=== PATIENT | female | born 1980 | race Two or more races ===

== ENCOUNTER 2020-05-25 14:34 | Emergency (ER) | payer OTHER, BC, SELFPAY ==
--- NOTE | ~2020-05-25 | CT_ITS ---
EXAMINATION: CT cervical spine wo con DATE: 05/25/2020 15:51 INDICATION: Neck pain after injury TECHNIQUE: Computed tomography (CT) of the cervical spine was performed without intravenous contrast. The dose-length product was 153 mGy-cm. Automated exposure control and iterative reconstruction tech [employer] were employed. COMPARISON: None FINDINGS: Reversal of cervical lordosis, likely due to muscle spasm or patient positioning. No acute fracture or traumatic malalignment. Vertebral body heights are maintained. Craniovertebral junction w ithin normal limits. Lung apices are normal. Odontoid process within normal limits. IMPRESSION: 1. No acute abnormality of the cervical spine. Reviewed, dictated and finalized at location A. T METAL HELPER
--- NOTE | ~2020-05-25 | CT_ITS ---
EXAMINATION: CT BRAIN W/O DATE: 05/25/2020 15:51 INDICATION: Headache after injury TECHNIQUE: Computed tomography (CT) of the head was performed without intravenous contrast. The dose- length product was 605.33 mGy-cm. Automated exposure control and iterative reconstruction technique w ere employed. COMPARISON: No prior studies for comparison. FINDINGS: Normal brain parenchymal volume for age. Normal black-white differentiation. No acute intrac ranial hemorrhage, infarction, mass or mass effect. No ventriculomegaly or midline shift. Midline sagittal images demonstrate a normal corpus callosum, c raniovertebral junction and sella turcica. Basilar cisterns are patent. Paranasal sinuses and mastoids are pneumatized. No depressed skull fractures. IMPRESSION: 1. No acute intracranial abnormality. Reviewed, dictated and finalized at location A. FOLIO MANAGER
[2020-05-25 14:44] VITALS: BP 145/94; PULSE 82; RESP 18; TEMP 36.3; O2SAT 100
--- NOTE | 2020-05-25 15:29 | ED.NEUROSD ---
HPI - Neuro Symptoms/Deficit General Chief Complaint: Neuro Symptoms/Deficit <FILI Gaviria Last Filed: 05/25/20 16:24> Stated Complaint: Head injury/nausea/left side tingling <FILI Gaviria Last Filed: 05/25/20 16:24> Time Seen by Provider: 05/25/20 15:00 <FILI Gaviria Last Filed: 05/25/20 16:24> Source: patient <FILI Gaviria Last Filed: 05/25/20 16:24> Mode of arrival: ambulatory <FILI Gaviria Last Filed: 05/25/20 16:24> Limitations: no limitations <FILI Gaviria Last Filed: 05/25/20 16:24> History of Present Illness HPI Narrative: This is a 39 year old female that presents to the ER for head injury sustained about a week and a half ago. Reports a metal pole fell off of a pallet at work. Reports it hit her in the head. She does not think she lost consciousness. She saw her primary provider yesterday and had an outpatient CT scan ordered, but has been unable to obtain this yet. Reports headaches and nausea. Does report history of migraines. She took an anti-inflammatory and sumatriptan this morning with little relief. Also reports tingling in her left arm. Denies vision changes, weakness, or numbness. <FILI Gaviria Last Filed: 05/25/20 16:24> Related Data Home Medications: Home Medications Medication Instructions Recorded Confirmed amitriptyline 05/25/20 sumatriptan succinate mg PO 05/25/20 <FILI Gaviria Last Filed: 05/25/20 16:24> Allergies/Adverse Reactions: Allergies Allergy/AdvReac Type Severity Reaction Status Date / Time PROCHLORPERAZINE EDISYLATE Allergy Mild BECOMES Uncoded 05/25/20 14:51 AGITATED PROCHLORPERAZINE MALEATE Allergy Mild BECOMES Uncoded 05/25/20 14:51 AGITATED <FILI Gaviria Last Filed: 05/25/20 16:24> Review of Systems Review of Systems: Narrative: CONSTITUTIONAL: Denies fever EYES: Denies visual changes GASTROINTESTINAL: Reports nausea, vomiting NEUROLOGIC: Reports headache. Denies numbness, or weakness. <Jaimie Pierre PA-C - Last Filed: 05/25/20 16:24> All systems reviewed & are unremarkable except as noted in HPI and below <Jaimie Pierre PA-C - Last Filed: 05/25/20 16:24> [facility] Past Medical History Medical History: Medical History (Updated 05/25/20 @ 16:23 by Jaimie Pierre PA-C) History of migraine <Jaimie Pierre PA-C - Last Filed: 05/25/20 16:24> Surgical History Surgical History: Surgical History (Updated 05/25/20 @ 15:45 by Jaimie Pierre PA-C) History of <Jaimie Pierre PA-C - Last Filed: 05/25/20 16:24> Social History Social History: Social History Gender identity (if verbalized by the patient): Female <Jaimie Pierre PA-C - Last Filed: 05/25/20 16:24> Exam Narrative: Exam Narrative: GENERAL: Well-appearing, well-nourished, and in no acute distress. HEAD: Normocephalic, atraumatic. EYES: PERRLA and EOMI. ENT: Nares clear, no rhinorrhea or epistaxis. Mucous membranes moist. Oropharynx without tonsillar hypertrophy exudate or other lesions. Bilateral TMs pearly black non-bulging NECK: Supple. No adenopathy or masses. CHEST: Clear to auscultation. No respiratory distress. No wheezes rales or rhonchi HEART: Regular rate and rhythm. No murmur heard. Normal peripheral pulses. EXTREMITIES: Normal range of motion. No edema. Strength equal in bilateral upper and lower extremities (5/5) SKIN: Warm, dry, no rash. NEURO: No focal deficits. Alert and oriented x3. Cranial nerves II through XII grossly intact. Normal [id number] PSYCH: Normal mood and affect <Jaimie Pierre PA-C - Last Filed: 05/25/20 16:24> Course Vital Signs Vital signs: Vital Signs Temperature 36.3 C L 05/25/20 14:44 Pulse Rate 82 05/25/20 14:44 Respiratory Rate 18 05/25/20 14:44 Blood Pressure 145/94 H 05/25/20 14:44 Pulse Oximetry 100 05/25/20 14:44
[2020-05-25 15:37] VITALS: BP 131/85; O2SAT 100
[2020-05-25 15:38] VITALS: O2SAT 100
[2020-05-25] MEDS: KETOROLAC 30 MG/ML VIAL (*BKC) IV PUSH (15:39)
[2020-05-25] MEDS: SODIUM CHLORIDE 0.9% IV 1,000 ML 999 ML IV CONT (15:40)
[2020-05-25 15:56] VITALS: O2SAT 100
[2020-05-25 16:01] VITALS: O2SAT 100
[2020-05-25 16:15] VITALS: O2SAT 100
== END 2020-05-25 16:37 | disposition home or self-care (01) ==
PROVIDERS: Emergency Provider Emergency Medicine; PCP Family Medicine
DX: S06.0X0A Concussion without loss of consciousness, initial encounter (principal); W20.8XXA Other cause of strike by thrown, projected or falling object, initial encounter
CPT/HCPCS: 70450; 72125; 96361; 96365; 96375; 99284; J0131; J1885; J7030

== ENCOUNTER 2022-11-16 04:15 | Emergency (ER) | payer BC, OTHER, SELFPAY ==
[2022-11-16] VITALS (33 sets, daily range): BP systolic 87–141; BP diastolic 59–91; PULSE 78–101; RESP 11–27; TEMP 36.1; O2SAT 74–100
--- NOTE | ~2022-11-16 | CT_ITS ---
Non-contrast Head CT History: Altered mental status COMPARISON: 05/25/2020 Technique: Axial non-contrast imaging of the brain was performed. Dose reduction technique was used on this scan by utilizing automated exposure control and iterative reconstruction technique. The dose -length product (DLP) was 605.33 mGy-cm. Findings: There is no evidence of intracranial hemorrhage, mass lesion, or acute infarct. Brain par enchyma appears normal. The ventricles and subarachnoid spaces are normal in size. The calvarium ap pears normal. The visualized paranasal sinuses and mastoid air cells are clear. Impression: No significant abnormality seen. Reviewed, dictated and finalized at location . Impression: No significant abnormality seen.
--- NOTE | ~2022-11-16 | XR_ITS ---
Portable chest x-ray Comparison: 11/16/2022 at 4:49 AM Clinical History: Repeat exam with nipple markers Findings: Bilateral nipple markers are present, and correspond to subtle bilateral nodular opacities , which are consistent therefore with nipple shadows. Lungs are otherwise clear. Cardiomediastinal s ilhouette is stable. Bones and soft tissues are unremarkable. Impression: No suspicious abnormality. Bilateral nipple shadows, which correlate with the nipple markers. Reviewed, dictated and finalized at location M. Impression: No suspicious abnormality. Bilateral nipple shadows, which correlate with the n ipple markers.
--- NOTE | ~2022-11-16 | XR_ITS ---
Portable chest x-ray Comparison: 10/09/2013 Clinical History: Altered mental status Findings: There is a 13 mm nodular opacity projecting over the right lung base. Left lung is clear. Cardiomediastinal silhouette is stable. Bones and soft tissues are unremarkable. Impression: 13 mm nodular opacity projecting over the right lung base. Repeat exam with nipple markers and/or CT scan recommended to further evaluate for pulmonary nodule. Reviewed, dictated and finalized at location M. Impression: 13 mm nodular opacity projecting over the right lung base. Repeat exam with nip ple markers and/or CT scan recommended to further evaluate for pulmonary nodule .
--- NOTE | 2022-11-16 04:24 | ECG_ITS ---
Measurements Intervals [place] Rate: 101 P: 50 MD: 176 QRS: 96 QRSD: 105 T: -5 QT: 350 QTc: 455 Interpretive Statements SINUS TACHYCARDIA RIGHT AXIS DEVIATION BORDERLINE ST-T WAVE ABNORMALITY- ANT/INF LEADS BORDERLINE ECG NO PREVIOUS ECG AVAILABLE FOR COMPARISON Electronically Signed On 11-16-2022 9:00:03 CDT by Sacha Hubbard D.O.
[2022-11-16 04:41] LABS: Glucose Point of Care 144 mg/dl (65-105)
[2022-11-16 04:50] LABS: Alveolar/Arterial O2 Gradient 9.2 mmHg; Base Excess ABG -0.3 mEq/l (+/-2.0); Fractional Inspired Oxygen 21 %; HCO3 ABG 24.5 mEq/l (22.0-26.0); Oxygen Content ABG 16.9 %vol (16.0-22.0); Oxyhemoglobin 95.1 % THb (90.0-100.0); PCO2 ABG 40.8 mmHg (35.0-45.0); PO2 ABG 91.7 mmHg (80.0-100.0); PO2 FiO2 Ratio Arterial Blood 4.37 %; Total Hemoglobin 12.6 g/dL (12.0-18.0); pH ABG 7.396 (7.350-7.450)
[2022-11-16] MEDS: SODIUM CHLORIDE 0.9% IV 1,000 ML 999 ML IV CONT ×2 (04:50→06:54)
[2022-11-16 04:51] LABS: Device ROOM AIR; Modified Allen's Test Pass; Site Drawn RIGHT RADIAL
[2022-11-16 04:55] LABS: Appearance Urine Clear (Clear); Bacteria Urine 4+ /hpf; Bilirubin Urine Negative (Negative); Blood Urine Trace (Negative); Color Urine Yellow (Yellow); Glucose Urine UA Negative (Negative); Ketones Urine Negative (Negative); Leukocyte Esterase Ur Negative LEU/UL (Negative); Nitrate Urine Positive (Negative); Non Pathogenic Casts 0-2; Protein Urine Negative (Negative); RBC Urine 0-2 /hpf (0-2); Specific Grav Ur 1.008 (1.001-1.035); Squamous Epithelial Cell Urine None seen /hpf (Few); Urobilinogen Urine 0.2 mg/dL (<2.0); WBC Urine 0-5 /hpf; pH Urine 5.5 (5.0-9.0)
[2022-11-16 04:58] LABS: Alanine Aminotransferase 18 U/L (6-35); Alkaline Phosphatase 46 U/L (38-126); Anion Gap 8 mmol/L (8-16); Aspartate Amino Transferase 25 U/L (14-36); Bilirubin,Total 0.6 mg/dL (0.2-1.3); Blood Urea Nitrogen 15 mg/dL (7-17); Calcium 8.7 mg/dL (8.4-10.2); Carbon Dioxide 24 mmol/L (22-30); Chloride 105 mmol/L (98-107); Estimated Glomerular Filt Rate > 60; Glucose 145 mg/dL (65-110); Lactic Acid Reflex 1.2 mmol/L (0.7-2.0); Magnesium 1.7 mg/dL (1.6-2.3); Potassium 3.5 mmol/L (3.4-5.0); Sodium 137 mmol/L (137-145)
[2022-11-16 04:59] LABS: Partial Thromboplastin Time 26.6 SECONDS (22.3-36.8); Prothrombin Time 13.8 Seconds (11.1-14.7)
[2022-11-16 05:00] LABS: Ethanol < 10 mg/dL (<10)
--- NOTE | 2022-11-16 05:00 | ED.GENADULT ---
HPI - General Adult General Chief complaint: Altered Mental Status <Leland Laguerre MD - Last Filed: 11/16/22 06:57> Stated complaint: AMS <Leland Laguerre MD - Last Filed: 11/16/22 06:57> Time Seen by Provider: 11/16/22 04:26 <Leland Laguerre MD - Last Filed: 11/16/22 06:57> History of Present Illness HPI narrative: Patient 42-year-old female who presents emerged department with chief complaint of altered mental status. Patient apparently got home from work around midnight went to bed and then woke up and was extremely confused per the patient's family she does have amitriptyline at the house but reported that there was not a significant amount of missing pills. The patient initially per EMS was not very responsive but by upon arrival to the emergency department was able to answer some basic questions. After being in the emergency department and being allowed to wake up more the patient reported that she was having difficulty sleeping the night and took 3 amitriptyline <Leland Laguerre MD - Last Filed: 11/16/22 06:57> Related Data Home medications: Home Medications Medication Instructions Recorded Confirmed amitriptyline 25 mg tablet 05/25/20 sumatriptan succinate 50 mg tablet mg PO 05/25/20 <Leland Laguerre MD - Last Filed: 11/16/22 06:57> Allergies/adverse reactions: Allergies Allergy/AdvReac Type Severity Reaction Status Date / Time PROCHLORPERAZINE EDISYLATE Allergy Mild BECOMES Uncoded 06/04/20 10:03 AGITATED PROCHLORPERAZINE MALEATE Allergy Mild BECOMES Uncoded 06/04/20 10:03 AGITATED <Leland Laguerre MD - Last Filed: 11/16/22 06:57> [facility] Past Medical History Medical History: Medical History (Updated 11/16/22 @ 08:45 by Carolina Torres III, DO) History of migraine <Leland Laguerre MD - Last Filed: 11/16/22 06:57> Surgical History Surgical History: Surgical History (System 06/04/20 @ 10:03 by Alphonso Wilson) History of <Leland Laguerre MD - Last Filed: 11/16/22 06:57> Social History Social History: Social History (System 06/04/20 @ 10:03 by Alphonso Wilson) Gender identity (if verbalized by the patient): Female <Leland Laguerre MD - Last Filed: 11/16/22 06:57> Course Vital Signs Vital signs: Vital Signs Temperature 97.0 F L 11/16/22 04:15 Pulse Rate 90 11/16/22 04:15 Respiratory Rate 27 H 11/16/22 04:15 Blood Pressure 123/86 11/16/22 04:15 Pulse Oximetry 97 11/16/22 04:15 Oxygen Delivery Room Air 11/16/22 04:15 Temperature 97.0 F L 11/16/22 04:15 Pulse Rate 91 11/16/22 08:33 Respiratory Rate 20 11/16/22 08:33 Blood Pressure 102/69 11/16/22 08:16 Pulse Oximetry 100 11/16/22 08:33 Oxygen Delivery Room Air 11/16/22 04:28 <Leland Laguerre MD - Last Filed: 11/16/22 06:57> Vital Signs Temperature 97.0 F L 11/16/22 04:15 Pulse Rate 90 11/16/22 04:15 Respiratory Rate 27 H 11/16/22 04:15 Blood Pressure 123/86 11/16/22 04:15 Pulse Oximetry 97 11/16/22 04:15 Oxygen Delivery Room Air 11/16/22 04:15 Temperature 97.0 F L 11/16/22 04:15 Pulse Rate 91 11/16/22 08:33 Respiratory Rate 20 11/16/22 08:33 Blood Pressure 102/69 11/16/22 08:16 Pulse Oximetry 100 11/16/22 08:33 Oxygen Delivery Room Air 11/16/22 04:28 <Carolina Torres III, DO - Last Filed: 11/16/22 16:56> Medical Decision Making MDM Narrative Medical decision making narrative: Differential diagnosis includes accidental overdose, SI/HI, The patient did admit to taking 3 amitriptyline. The patient will be observed until point of sobriety and the patient will be reassessed for possible suicidal ideation Laboratory studies were obtained and the patient which showed a CBC with a white count of 7.1 hemoglobin was 12.3 electrolytes are within normal limits ABG was normal
[2022-11-16 05:01] LABS: Add Urine Microscopic? YES
[2022-11-16 05:08] LABS: Amphetamine Screen Urine Negative (Negative); Barbiturate Screen Urine Negative (Negative); Benzodiazepines Screen Urine Negative (Negative); Cannabinoid Screen Urine Negative (Negative); Cocaine Screen Urine Negative (Negative); Methadone Screen Urine Negative (Negative); Opiate Screen Urine Negative (Negative); Phencyclidine Screen Urine Negative (Negative)
[2022-11-16 05:09] LABS: Troponin I < 0.012 ng/mL (0.000-0.034)
[2022-11-16 05:29] LABS: Basophils Percent Auto 0.6 % (0.2-1.2); Eosinophils Absolute Auto 0.1 K/mm3 (0-0.3); Eosinophils Percent Auto 0.8 % (0-4.4); Hematocrit 38.4 % (37.0-47.0); Hemoglobin 12.3 g/dL (12.0-15.0); Immature Granulocyte Absolute 0.01 K/mm3 (0.00-0.031); Immature Granulocyte Percent A 0.1 % (0-0.5); Lymphocytes Absolute Auto 2.14 K/mm3 (0.9-3.2); Lymphocytes Percent Auto 30.3 % (18.3-44.2); Mean Corpuscular Hemoglobin 28.3 pg (26-34); Mean Corpuscular Volume 88.5 fl (80-100); Mean Platelet Volume 9.9 fl (7.4-10.4); Monocytes Absolute Auto 0.3 K/mm3 (0.1-0.6); Monocytes Percent Auto 4.8 % (2.6-8.5); Neutrophils Absolute Auto 4.5 K/mm3 (1.3-6.7); Neutrophils Percent Auto 63.4 % (45.5-73.1); Platelet Count Result 266 k/mm3 (150-375); Red Blood Count 4.34 M/mm3 (4.2-5.4); Red Cell Distribution Width 12.4 % (11.5-14.5); White Blood Count 7.1 K/mm3 (4.5-10.0)
[2022-11-16 06:10] LABS: Acetaminophen < 10 ug/mL (10-30); Salicylate < 1.0 mg/dL (2-20)
[2022-11-16] MEDS: MAGNESIUM SULF 2 GM/WATER 50ML 2 GM/50 ML BAG IVPB (06:59)
--- NOTE | 2022-11-16 07:10 | PC.NURSE ---
report received from reception agent. pt resting quietly on stretcher. no distress noted.
[2022-11-16 08:26] LABS: Troponin I < 0.012 ng/mL (0.000-0.034)
--- NOTE | 2022-11-16 08:45 | PC.NURSE ---
pt awake and ambulatory to bathroom. states took 3 of her amitryptlline to help her sleep. denies si. mary ellen contacted. en route to pick pt up.
== END 2022-11-16 09:24 | disposition home or self-care (01) ==
PROVIDERS: Emergency Medicine; Emergency Provider Emergency Medicine; PCP Family Medicine
DX: T43.011A Poisoning by tricyclic antidepressants, accidental (unintentional), initial encounter (principal); R91.8 Other nonspecific abnormal finding of lung field
CPT/HCPCS: 36415; 36600; 70450; 71045; 80053; 80307; 81001; 81025; 82805; 82948; 83605; 83735; 84443; 84484; 85025; 85610; 85730; 93005; 96361; 96365; 99284; J3475; J7030